=== PATIENT | female | born 1990 | race Caucasian/White ===

== ENCOUNTER 2020-01-04 20:41 | Emergency (ER) | payer BC ==
--- OUTSIDE RECORDS SUMMARY | 2020-01-04 20:50 | XMS REPORT | Continuity of Care Document ---
:1990 Author Organization [facility] Care Team Providers Name Role Phone LINDA KENDALL Primary Care Physician Allergies and Intolerances Code Code System Allergy Type Reaction Severity Start End Date Status Substance Date 19640716 RXNorm Pentasa Drug Confusion Unknown Active allergy 9 (disorder) Medications RxNorm Medication Dose Route Instructions Start End Status Date Date Amoxicillin 875 1 tab oral orally 2 times Active MG / Clavulanate per day 125 MG Oral Tablet COMPOUND 4.5 oral orally daily Active transfer 4492 Fluoxetine 10 mg oral orally every Active morning 20000414 letrozole 2.5 MG 2.5 mg oral orally daily (5 Active Oral Tablet days) (begin between days 2 and 5 of mentrual cycle-take BID) 358062 Metformin 500 mg oral orally daily Active hydrochloride 500 MG Oral Tablet Multivitamins 1 oral orally once Active tab-cap Novarel 13907 intramuscular intramuscular Active unit once (to start next week) One-A-Day 1 cap oral orally daily Active Women's (may take with 28 mg iron-800 food >= 2 hrs mcg-235 mg before/after zinc/calcium-con taining/dairy products and/or antacids) 586061 Prednisone 10 MG 10 mg oral orally daily Active Oral Tablet 848202 Sumatriptan 50 50 mg oral orally every 2 Active MG Oral Tablet hours (4 doses) ( until response;) 723 Amoxicillin 500 mg oral orally 3 times Completed per day 507540 Azithromycin 250 250 mg oral orally every 24 Completed MG Oral Tablet hours (500 mg x 1 day, then 250 mg x 4 days) 460787 Azithromycin 250 250 mg oral orally every 24 Completed MG Oral Tablet hours (500 mg x 1 day, then 250 mg x 4 days) 575291 benzonatate 200 200 mg oral orally 3 times Completed MG Oral Capsule per day as needed. (as needed for cough) Medications At Time Of Discharge RxNorm Medication Dose Route Instructions Start End Status Date Date 879211 Amoxicillin 875 1 tab oral orally 2 times Active MG / Clavulanate per day 125 MG Oral Tablet COMPOUND transfer 4.5 oral orally daily Active 4493 Fluoxetine 10 mg oral orally every Active morning 20000414 letrozole 2.5 MG 2.5 mg oral orally daily (5 Active Oral Tablet days) (begin between days 2 and 5 of mentrual cycle-take BID) 880100 Metformin 500 mg oral orally daily Active hydrochloride 500 MG Oral Tablet Multivitamins 1 tab-cap oral orally once Active Novarel 17992 intramuscular intramuscular Active unit once (to start next week) One-A-Day Women's 1 cap oral orally daily Active 28 mg (may take with iron-800 mcg-235 food >= 2 hrs mg before/after zinc/calcium-con taining/dairy products and/or antacids) 508142 Prednisone 10 MG 10 mg oral orally daily Active Oral Tablet 199923 Sumatriptan 50 MG 50 mg oral orally every 2 Active Oral Tablet hours (4 doses) ( until response;) Problems Code Code System Problem Name Start Date End Date Status 465358256 SNOMED-CT Tear of meniscus of knee 2012 Active 46360853 SNOMED-CT Irritable colon 2010 Active 90296783 SNOMED-CT Eczema 2007 Active 26157113 SNOMED-CT Anxiety 2007 Active 929830078 SNOMED-CT Panic attack 2007 Active 152651754 SNOMED-CT Polycystic ovary syndrome Active Procedures Code Code System Procedure Date 94147463 SNOMED CT Tooth extraction [address] Appendectomy [address] Cholecystectomy 2007 Results No data in the system Social History Code Code System Social History Description Dates Observed Observation 73295880 SNOMED CT Current Smoking Smoker, current Status status unknown UNK AdministrativeGender Sex Assigned At Unknown Vital Signs Code Code System Vitals Value Date 8310-5 LOINC Body Temperature 96.8 [degF] 11/15/2019 8865-8 LOINC Pulse Rate 86 {beats}/min 11/15/2019 9279-1 LOINC Respiratory Rate 20 /min 11/15/2019 64998-9 LOINC O2% BldC Oximetry 99 % 11/15/2019 8480-6 LOINC BP Systolic 125 mm[Hg] 11/15/2019 8462-4 LOINC BP Diastolic 72 mm[Hg] 11/15/2019 8302-2 LOINC Height 67 [in_i] 11/15/2019 10685-3 LOINC Weight 82 kg 11/15/2019 3140-1 LOINC Body surface area Derived from formula 1.94 m2 11/15/2019 61835-9 LOINC BMI (Body Mass Index) 28.3 kg/m2 11/15/2019 Goals Section No data in the system Health Concerns No data in the systemEncounter Diagnosis Date Code Code System Diagnosis Status J01.90 ICD10 ACUTE SINUSITIS UNSPECIFIED Active Advance Directives *RHIO - CONSENT IS YES Directive Type Effective Date [employer] Developer Notes Supporting Document Name Address Phone No Directive Type 11/24/2018 4:34:28 Not Specified Not Specified Not Specified None No specified PM PT STATES NO ADVANCE DIRECTIVES Directive Type Effective Date [employer] Developer Notes Supporting Document Name Address Phone No Directive Type 08/08/2018 5:49:00 Not Specified Not Specified Not Specified None No specified PM Encounters Encounter Diagnosis Location Date ACUTE SINUSITIS UNSPECIFIED [facility] 11/15/2019 Family History No Significant Family History Functional Status Code Functional Condition Code System Date Status Independent adls SNOMED CT 11/15/2019 Active Appears well nourished/hydrated SNOMED CT 11/15/2019 Active Immunizations No data in the system Medical Equipment No data in the system Mental Status Code Cognitive Condition Code System Date Status Mild distress SNOMED CT 11/15/2019 Active Oriented x [address] 11/15/2019 Active Skin warm & dry SNOMED CT 11/15/[address] 11/15/2019 Active Assessment and Plan Assessments No data in the systemPlan Of Treatment No data in the systemPending Tests No data in the system Hospital Discharge Instructions No data in the system Reason for Visit Reason for Visit Sinus Infection
[2020-01-04 21:02] VITALS: BP 129/81
--- NOTE | 2020-01-04 21:21 | UC ---
Skin Complaint HPI - HPI Summary HPI Summary: 29yo female presenting with "red rash" on b/l anterior ankles since yesterday and "red [place]" on b/l calves since a few hours ago. Patient states rash on ankles is "kind of tender" but the lesions on the calves are not. Denies any itching. States the right ankle seems to be somewhat swollen. Denies any new products, detergents, foods, medications, environmental exposures. Denies fever and chills. States she put cortisone cream on the ankles and it has relieved redness and made the rashes smaller over the course of a day. States red [place] on legs are different and has not put anything on them. Patient states she "has terrible skin and weird stuff like this has always happened to her." Take daily anti depression/anxiety medication. Denies other PMH. - History of Current Complaint Chief Complaint: UCAllergicReaction Stated Complaint: ALLERGIC REACTION Hx Obtained From: Patient Hx Last Menstrual Period: 12/13/19 Pain Intensity: 0 - Allergy/Home Medications Allergies/Adverse Reactions: Allergies Allergy/AdvReac Type Severity Reaction Status Date / Time mesalamine [From Pentasa] Allergy See Comment Verified 01/04/20 20:53 Home Medications: Home Medications Ethinyl Estradiol/Drospirenone [Shira 28 Tablet] 1 tab PO DAILY 01/04/20 [History Confirmed 01/04/20] FLUoxetine CAP* [PROzac CAP*] 20 mg PO DAILY 01/04/20 [History Confirmed ] Ibuprofen TAB* [Advil TAB*] 2 tab PO ONCE 01/04/20 [History Confirmed 01/04/20] PMH/Surg Hx/FS Hx/Imm Hx Previously Healthy: Yes - Surgical History Surgical History: Yes Surgery Procedure, Year, and Place: 08/25/07--APPY AND CHOLECYSTECTOMY - Family History Known Family History: Positive: Non-Contributory - Social History Alcohol Use: Daily Substance Use Type: None Smoking Status (MU): Light Every Day Tobacco Smoker Type: Cigarettes Amount Used/How Often: 5 cigs/day Length of Time of Smoking/Using Tobacco: 4 YRS Have You Smoked in the Last Year: Yes Review of Systems All Other Systems Reviewed And Are Negative: Yes Constitutional: Positive: Negative Skin: Positive: Rash - b/l ankles and b/l calves Respiratory: Positive: Negative Cardiovascular: Positive: Negative Gastrointestinal: Positive: Negative Musculoskeletal: Positive: Negative Neurological/Mental Status: Positive: Negative Physical Exam - Summary Physical Exam Summary: Vital Signs Reviewed: Yes A+Ox3, no distress, well-appearing Eyes: Conjunctiva Clear ENT: Hearing grossly normal Neck: Positive: Supple Respiratory: Positive: No respiratory distress, No accessory muscle use Cardiovascular: skin reflects adequate perfusion Musculoskeletal Exam: SENA x 4 without difficulty Neurological: Positive: Alert Psychological: Positive: age appropriate behavior Skin: Positive: ~2cm area of inflammation and scaling noted on b/l anterior ankles with minimal discomfort with palpation of right ankle. round 1cm area of purpura-like lesion of b/l calves with smaller purpura fading proximally, no TTP , no edema, no red streaking Vital Signs: Initial Vital Signs Temp 97.9 F 01/04/20 20:57 Pulse 72 01/04/20 20:57 Resp 15 01/04/20 20:57 BP 129/81 01/04/20 20:57 Pulse Ox 100 01/04/20 20:57 Course/Dx - Course Course Of Treatment: Discussed with patient likely contact dermatitis of ankles and to continue with cortisone cream. Discussed with patient to be mindful of possible allergens. Further discussed unknown etiology of lesions on the calves and to leave them be if they are asymptomatic. Instructed to follow up with pcp or dermatology if lesions are persistent or recurrent. Patient voiced understanding and agreed with treatment plan. - Diagnoses Provider Diagnosis: Dermatitis, Purpura Discharge ED - Sign-Out/Discharge Documenting (check all that apply): Patient Departure All imaging exams completed and their final reports reviewed: No Studies - Discharge Plan Condition: Stable Disposition: HOME Patient Education Materials: Dermatitis (ED) Referrals: Diogenes Gonzalez MD [Medical Doctor] - If Needed [facility] [place] PHYSICIAN REFERRAL [Outside] - If Needed Additional Instructions: As discussed, it is unclear what is causing your symptoms today. You may continue with the hyrdocortisone cream for symptom relief. Follow up with the dermatology or physician referral listed below if symptoms persist. Go to the emergency room with any new or worsening symptoms. - Billing Disposition and Condition Condition: STABLE Disposition: Home - Attestation Statements Provider Attestation: I was available for consult. This patient was seen by the PAIGE. The patient was not presented to, seen by, or examined by me. -[place]
== END 2020-01-04 21:58 | disposition home or self-care (01) ==
LOC: UCCORT 20:41
DX: L30.9 Dermatitis, unspecified (principal); D69.2 Other nonthrombocytopenic purpura; F41.9 Anxiety disorder, unspecified; F32.9 Major depressive disorder, single episode, unspecified; Z88.8 Allergy status to other drugs, medicaments and biological substances; F17.210 Nicotine dependence, cigarettes, uncomplicated
CPT/HCPCS: 99201; G0463